=== PATIENT | male | born 1940 | race Caucasian/White ===

== ENCOUNTER 2018-09-16 10:44 | Emergency (ER) | payer MEDICARE ==
[~2018-09-16] VITALS: Ht 185.4 cm; Wt 108.9 kg
--- OUTSIDE RECORDS SUMMARY | 2018-09-16 10:46 | XMS REPORT | Continuity of Care Document ---
Author Author [facility] Interface Address Unknown Phone Unavailable Problems Problem Status Onset Date Classification Date Reported Comments Source EPISTAXIS Active 01/31/2017 [facility] UNCONTROLLED NOSE BLEED Active 01/31/2017 [facility] HTN (<span [id number]</span>) Resolved Problem 02/06/2017 [facility] EPISTAXIS Active [facility] Medications Medication Details Route Status Patient Instructions Ordering Provider Order Date Source Sodium Chloride 0.154 MEQ/ML Nasal [place] [Simply Saline] 1 spray, NASAL, QID, PRN Nasal dryness, # 45 mL, 0 Refill(s) Active 02/03/2017 [facility] Sodium Chloride 0.154 MEQ/ML Nasal [place] [Simply Saline] 1 spray, NASAL, QID, PRN Nasal dryness, # 45 ml, 0 Refill(s) Inactive 02/03/2017 [facility] Amoxicillin 875 MG / Clavulanate 125 MG Oral Tablet [Augmentin 875-mg] 875 mg=1 tab, PO, BID, X 5 day, # 10 tab, 0 Refill(s) Active 02/03/2017 [facility] Deep Sea Nasal [place] 2 spray, Route: NASAL, Q6H, Drug form: SOLN, Start date: 02/03/17 12:00:00 CDT, Duration: 30 day, Stop date: 03/05/17 6:00:00 CDTNotes: (Same as: [place], Deep Sea Nasal [place]). Inactive 02/03/2017 [facility] Streptococcus pneumoniae serotype 1 capsular antigen diphtheria [id number] protein conjugate vaccine / Streptococcus pneumoniae serotype 14 capsular antigen diphtheria [id number] protein conjugate vaccine / Streptococcus pneumoniae serotype 18C capsular antigen d 0.5 mL, Route: IM, Drug Form: INJ, Daily, Start date: 02/03/17 9:00:00 CDT, Duration: 1 doses or times, Stop date: 02/03/17 9:00:00 CDTNotes: Shake well prior to use (Same as: Prevnar 13) Inactive 02/03/2017 [facility] Coreg 3.125 mg, 1 tab, Route: PO, Drug form: TAB, Q12H, Dosing Weight 104.545, kg, Priority: NOW, Start date: 02/02/17 13:41:00 CDT, Duration: 30 day, Stop date: 03/04/17 9:00:00 CDTNotes: Give with food. (Same As: Coreg) No Longer Active 02/02/2017 [facility] ondansetron (ANES) Route: IV, Drug form: INJ, ONCE, Stop date: 02/02/17 10:07:00 CDT Inactive 02/02/2017 [facility] dexamethasone (ANES) Route: IV, Drug form: INJ, ONCE, Stop date: 02/02/17 8:46:00 CDT Inactive 02/02/2017 [facility] famotidine (ANES) Route: IV, Drug form: INJ, ONCE, Stop date: 02/02/17 8:46:00 CDT Inactive 02/02/2017 [facility] propofol (ANES) Route: IV, Drug form: INJ, ONCE, Stop date: 02/02/17 8:41:00 CDT Inactive 02/02/2017 [facility] metoprolol (ANES) Route: IV, Drug form: INJ, ONCE, Stop date: 02/02/17 8:41:00 CDT Inactive 02/02/2017 [facility] lidocaine (ANES) Route: IV, Drug form: INJ, ONCE, Stop date: 02/02/17 8:41:00 CDT Inactive 02/02/2017 [facility] phenylephrine (ANES) Route: IV, Drug form: INJ, ONCE, Stop date: 02/02/17 8:41:00 CDT Inactive 02/02/2017 [facility] Oxycodone 10 mg, Route: PO, Drug form: TAB, Q4H, Dosing Weight 104.545, kg, PRN Pain Score 7-10, Start date: 02/02/17 8:39:00 CDT, Duration: 30 day, Stop date: 03/04/17 8:38:00 CDT Inactive 02/02/2017 [facility] Flumazenil 0.2 mg, Route: IVP, PRN, Dosing Weight 104.545, kg, PRN Benzodiazepine Reversal, Initial dose, Start date: 02/02/17 8:39:00 CDT, Duration: 30 day, Stop date: 03/04/17 8:38:00 CDT Inactive 02/02/2017 [facility] Hydromorphone 0.5 mg, Route: IVP, Q5Min, Dosing Weight 104.545, kg, PRN Pain Score 7-10, Start date: 02/02/17 8:39:00 CDT, Duration: 4 doses or times, Stop date: Limited # of times Inactive 02/02/2017 [facility] Promethazine 6.25 mg, Route: IVPB, ONCE, Dosing Weight 104.545, kg, PRN Nausea & Vomiting, Start date: 02/02/17 8:39:00 CDT Inactive 02/02/2017 [facility] Ondansetron 4 mg, Route: IVP, ONCE, Dosing Weight 104.545, kg, PRN Nausea & Vomiting, Start date: 02/02/17 8:39:00 CDT Inactive 02/02/2017 [facility] Naloxone 0.4 mg, Route: IVP, Q2MIN, Dosing Weight 104.545, kg, PRN Narcotic Reversal, Start date: 02/02/17 8:39:00 CDT, Duration: 8 doses or times, Stop date: Limited # of times Inactive 02/02/2017 [facility] ePHEDrine (ANES) Route: IV, Drug form: INJ, ONCE, Stop date: 02/02/17 8:36:00 CDT Inactive 02/02/2017 [facility] vasopressin (ANES) Route: IV, Drug form: INJ, ONCE, Stop date: 02/02/17 8:36:00 CDT Inactive 02/02/2017 [facility] fentaNYL (ANES) Route: IV, Drug form: INJ, ONCE, Stop date: 02/02/17 8:36:00 CDT Inactive 02/02/2017 [facility] acetaminophen (ANES) (ANES) Route: IV, Drug form: INJ, Start date: 02/02/17 8:33:00 CDT, Stop date: 02/02/17 9:33:00 CDT Inactive 02/02/2017 [facility] ceFAZolin (ANES) Route: IV, Drug form: INJ, ONCE, Stop date: 02/02/17 8:11:00 CDT Inactive 02/02/2017 [facility] LR 1000 mL INJ (ANES) Route: IV, Total Volume: 1,000, Start date: 02/02/17 7:27:00 CDT, Stop date: 02/02/17 8:27:00 CDT Inactive 02/02/2017 [facility] Lactated Ringers 1,000 mL 1,000 mL, Rate: 75 ml/hr, Infuse over: 13.3 hr, Route: IV, Dosing Weight 104.545 kg, Total Volume: 1,000, Start date: 02/02/17 4:23:00 CDT, Duration: 30 day, Stop date: 03/04/17 4:22:00 CDT Inactive 02/02/2017 [facility] potassium phosphate 15 mmol, 5 mL, Route: IVPB, ONCE, Dosing Weight 104.545, kg, Start date: 02/02/17 3:51:00 CDT, Stop date: 02/02/17 3:51:00 CDTNotes: (Same as: K Phosphate.) 1 mMol phoshate has 1.47 mEq potassium Infuse over 4 hours Inactive 02/02/2017 [facility] Zofran 4 mg, 2 mL, Route: IVP, Drug form: INJ, Q8H, Dosing Weight 104.545, kg, PRN Nausea, Start date: 02/01/17 20:11:00 CDT, Duration: 30 day, Stop date: 03/03/17 20:10:00 CDTNotes: (Same as: Zofran) MEDICATION WASTE Product Size: 4 mg Product Wasted: ___ mg No Longer Active 02/02/2017 [facility] Tylenol 650 mg, 2 tab, Route: PO, Drug form: TAB, Q6H, Dosing Weight 104.545, kg, PRN Pain 1-3/Temp > 100.4 F, Start date: 02/01/17 17:14:00 CDT, Duration: 30 day, Stop date: 03/03/17 17:13:00 CDTNotes: Do not exceed 4 gm/day. (Same as: Tylenol) No Longer Active 02/01/2017 [facility] Hydralazine 10 mg, 0.5 mL, Route: IV, Drug form: INJ, Q4H, Dosing Weight 104.545, kg, PRN Hypertension, Start date: 02/01/17 17:13:00 CDT, Duration: 30 day, Stop date: 03/03/17 17:12:00 CDTNotes: (Same as: Apresoline) Push over 5 minutes No Longer Active 02/01/2017 [facility] Lisinopril 20 mg, 1 tab, Route: PO, Drug form: TAB, BID, Dosing Weight 104.545, kg, Start date: 02/01/17 9:00:00 CDT, Stop date: 03/02/17 17:00:00 CDTNotes: (Same as: Prinivil, Zestril) No Longer Active 02/01/2017 [facility] Hydralazine 20 mg, Route: IV, ONCE, Dosing Weight 104.545, kg, Start date: 02/01/17 8:01:00 CDT, Stop date: 02/01/17 8:01:00 CDT Inactive 02/01/2017 [facility] Amlodipine 10 mg, 1 tab, Route: PO, Drug form: TAB, Daily, Dosing Weight 104.545, kg, Start date: 02/01/17 7:00:00 CDT, Duration: 30 day, Stop date: 03/02/17 9:00:00 CDTNotes: (Same as: Norvasc) No Longer Active 02/01/2017 [facility] Morphine 2 mg, 0.5 mL, Route: IVP, Drug form: INJ, Q4H, Dosing Weight 104.545, kg, PRN Pain Score 7-10, Start date: 02/01/17 6:20:00 CDT, Duration: 30 day, Stop date: 03/03/17 6:19:00 CDTNotes: (Same as:MORPhine Sulfate) No Longer Active 02/01/2017 [facility] Aspirin 81 mg, PO, Daily, 0 Refill(s) No Longer Active 02/01/2017 [facility] amLODIPine 10 mg oral tablet 10 mg=1 tab, PO, Daily, # 30 tab, 0 Refill(s) Active 02/01/2017 [facility] lisinopril 20 mg oral tablet 20 mg=1 tab, PO, BID, 0 Refill(s) Active 02/01/2017 [facility] Afrin Severe Congestion 2 spray, Route: NASAL, Drug Form: SPRY, Dosing Weight 104.545, kg, BID, PRN Other -See Comment, Start date: 02/01/17 0:20:00 CDT, Duration: 30 day, Stop date: 03/03/17 0:19:00 CDTNotes: (Same as: Afrin) No Longer Active 02/01/2017 [facility] Amoxicillin 875 MG / Clavulanate 125 MG Oral Tablet [Augmentin 875-mg] 1 tab, Route: PO, Drug Form: TAB, Dosing Weight 104.545, kg, Q12H, STAT, Start date: 02/01/17 0:20:00 CDT, Duration: 30 day, Stop date: 03/02/17 21:00:00 CDTNotes: With food. (Same as: Augmentin 875) No Longer Active 02/01/2017 [facility] Nystatin 100 UNT/MG Topical Powder 1 appl, Route: TOP, PRN, Drug form: PWDR, PRN For Fungal Prophylaxis, Start date: 01/31/17 23:58:00 CDT, Duration: 30 day, Stop date: 03/02/17 23:57:00 CDTNotes: (Same as:Mycostatin, Nilstat) For external use only. No Longer Active 02/01/2017 [facility] sodium chloride 0.9% INJ 250 mL 250 mL, Rate: Log Tumbler for use with blood product administration., Dosing Weight 104.545, kg, Route: IV, Total Volume: 250, Priority: Routine, Start Date: 01/31/17 21:46:00 CDT, Duration: 30 day, Stop date: 03/02/17 21:45:00 CDT, Replace Every: 24 hr No Longer Active 02/01/2017 [facility] Phenylephrine Hydrochloride 10 MG/ML Nasal Solution Route: Each Affected Nostril, ONCE, Start date: 01/31/17 18:46:00 CDT, Stop date: 01/31/17 18:46:00 CDT Inactive 01/31/2017 [facility] Zofran 4 mg, Route: IVP, Drug form: INJ, ONCE, Dosing Weight 104.545, kg, Priority: STAT, Start date: 01/31/17 18:44:00 CDT, Stop date: 01/31/17 18:44:00 CDT Inactive 01/31/2017 [facility] Morphine 4 mg, Route: IVP, ONCE, Dosing Weight 104.545, kg, Priority: STAT, Start date: 01/31/17 18:44:00 CDT, Stop date: 01/31/17 18:44:00 CDT Inactive 01/31/2017 [facility] Zofran 4 mg, 2 mL, Route: IVP, Drug form: INJ, ONCE, Dosing Weight 104.545, kg, Priority: STAT, Start date: 01/31/17 16:16:00 CDT, Stop date: 01/31/17 16:16:00 CDTNotes: (Same as: Zofran) MEDICATION WASTE Product Size: 4 mg Product Wasted: ___ mg Inactive 01/31/2017 [facility] Morphine 4 mg, 1 mL, Route: IVP, Drug form: SOLN, ONCE, Dosing Weight 104.545, kg, Priority: STAT, Start date: 01/31/17 16:16:00 CDT, Stop date: 01/31/17 16:16:00 CDTNotes: (Same as:MORPhine Sulfate) Inactive 01/31/2017 [facility] Tranexamic Acid 1 gm, 10 mL, Route: TOP, Drug form: INJ, ONCE, Dosing Weight 104.545, kg, Start date: 01/31/17 16:10:00 CDT, Stop date: 01/31/17 16:10:00 CDTNotes: (Same As: Cyklokapron) Inactive 01/31/2017 [facility] Allergies, Adverse Reactions, Alerts Substance Category Reaction Severity Reaction type Status Date Reported Comments Source Immunizations Immunization Date Given Site Status Last Updated Comments Source pneumococcal 13-valent vaccine 02/03/2017 Left Deltoid completed [place] [facility] Results Order Name Results Value Reference Range Date Interpretation Comments Source HEMATOLOGY Hgb 9.5 g/dL 14.0 - 18.0 02/03/2017 [facility] HEMATOLOGY Hct 28.6 % 42.0 - 54.0 02/03/2017 [facility] CHEM PANEL Magnesium Lvl 2.2 mg/dL 1.8 - 2.4 02/03/2017 [facility] CHEM PANEL Phosphorus 2.9 mg/dL 2.5 - 4.5 02/03/2017 [facility] ELECTROLYTES AGAP 11.0 meq/L 10.0 - 20.0 02/03/2017 [facility] ELECTROLYTES eGFR 71 mL/min/1.73m2 02/03/2017 Result Comment: The eGFR is calculated using the CKD-EPI formula. In most young, healthy individuals the eGFR will be >90 mL/min/1.73m2. The eGFR declines with age. An eGFR of 60-89 may be normal in some populations, particularly the elderly, for whom the CKD-EPI formula has not been extensively validated. Use of the eGFR is not recommended in the following populations: Individuals with unstable creatinine concentrations, including patients and those with serious co-morbid conditions. Patients with extremes in muscle mass or diet. The data above are obtained from the National Kidney Disease Education Program (NKDEP) which additionally recommends that when the eGFR is used in patients with extremes of body mass index for purposes of drug dosing, the eGFR should be multiplied by the estimated BMI. [facility] ELECTROLYTES Creatinine Lvl 1.03 mg/dL 0.50 - 1.40 02/03/2017 [facility] ELECTROLYTES BUN 19 mg/dL 7 - 22 02/03/2017 [facility] ELECTROLYTES Sodium Lvl 144 meq/L 135 - 145 02/03/2017 [facility] ELECTROLYTES Glucose Lvl 125 mg/dL 70 - 99 02/03/2017 [facility] ELECTROLYTES CO2 26 meq/L 24 - 32 02/03/2017 [facility] ELECTROLYTES Calcium Lvl 8.5 mg/dL 8.5 - 10.5 02/03/2017 [facility] ELECTROLYTES Chloride Lvl 111 meq/L 95 - 109 02/03/2017 [facility] ELECTROLYTES Potassium Lvl 4.0 meq/L 3.5 - 5.1 02/03/2017 [facility] HEMATOLOGY Hct 26.6 % 42.0 - 54.0 02/03/2017 [facility] HEMATOLOGY MCV 96.8 fL 80.0 - 94.0 02/03/2017 [facility] HEMATOLOGY Hgb 9.2 g/dL 14.0 - 18.0 02/03/2017 [facility] HEMATOLOGY Platelet 192 K/CMM 133 - 450 02/03/2017 [facility] HEMATOLOGY MPV 9.1 fL 7.4 - 10.4 02/03/2017 [facility] HEMATOLOGY RDW 13.3 % 11.5 - 14.5 02/03/2017 [facility] HEMATOLOGY MCHC 34.7 g/dL 32.0 - 36.0 02/03/2017 [facility] HEMATOLOGY MCH 33.5 pg 27.0 - 31.0 02/03/2017 [facility] HEMATOLOGY RBC 2.75 M/CMM 4.70 - 6.10 02/03/2017 [facility] HEMATOLOGY WBC 14.2 K/CMM 3.7 - 10.4 02/03/2017 [facility] HEMATOLOGY PTT 27.5 s 22.9 - 35.8 02/03/2017 [facility] HEMATOLOGY PT 14.2 s 12.0 - 14.7 02/03/2017 [facility] HEMATOLOGY INR 1.08 0.85 - 1.17 02/03/2017 [facility] HEMATOLOGY Monocytes 9.0 % 2.0 - 12.0 02/03/2017 [facility] HEMATOLOGY Segs 82.6 % 45.0 - 75.0 02/03/2017 [facility] HEMATOLOGY Lymphocytes 8.0 % 20.0 - 40.0 02/03/2017 [facility] HEMATOLOGY Monocytes # 1.3 K/CMM 0.0 - 0.8 02/03/2017 [facility] HEMATOLOGY Lymphocytes # 1.1 K/CMM 1.0 - 5.5 02/03/2017 [facility] HEMATOLOGY Basophils 0.3 % 0.0 - 1.0 02/03/2017 [facility] HEMATOLOGY Eosinophils 0.1 % 0.0 - 4.0 02/03/2017 [facility] HEMATOLOGY Segs-Bands # 11.8 K/CMM 1.5 - 8.1 02/03/2017 [facility] CHEM PANEL Phosphorus 2.7 mg/dL 2.5 - 4.5 02/02/2017 [facility] CHEM PANEL eGFR 80 mL/min/1.73m2 02/02/2017 Result Comment: The eGFR is calculated using the CKD-EPI formula. In most young, healthy individuals the eGFR will be >90 mL/min/1.73m2. The eGFR declines with age. An eGFR of 60-89 may be normal in some populations, particularly the elderly, for whom the CKD-EPI formula has not been extensively validated. Use of the eGFR is not recommended in the following populations: Individuals with unstable creatinine concentrations, including patients and those with serious co-morbid conditions. Patients with extremes in muscle mass or diet. The data above are obtained from the National Kidney Disease Education Program (NKDEP) which additionally recommends that when the eGFR is used in patients with extremes of body mass index for purposes of drug dosing, the eGFR should be multiplied by the estimated BMI. [facility] CHEM PANEL CO2 28 meq/L 24 - 32 02/02/2017 [facility] CHEM PANEL Chloride Lvl 110 meq/L 95 - 109 02/02/2017 [facility] CHEM PANEL Calcium Lvl 8.5 mg/dL 8.5 - 10.5 02/02/2017 [facility] CHEM PANEL AGAP 10.3 meq/L 10.0 - 20.0 02/02/2017 [facility] CHEM PANEL Glucose Lvl 122 mg/dL 70 - 99 02/02/2017 [facility] CHEM PANEL Potassium Lvl 4.3 meq/L 3.5 - 5.1 02/02/2017 [facility] CHEM PANEL Sodium Lvl 144 meq/L 135 - 145 02/02/2017 [facility] CHEM PANEL BUN 14 mg/dL 7 - 22 02/02/2017 [facility] CHEM PANEL Creatinine Lvl 0.94 mg/dL 0.50 - 1.40 02/02/2017 [facility] CHEM PANEL Magnesium Lvl 2.2 mg/dL 1.8 - 2.4 02/02/2017 [facility] HEMATOLOGY Hct 27.7 % 42.0 - 54.0 02/02/2017 [facility] HEMATOLOGY Hgb 9.6 g/dL 14.0 - 18.0 02/02/2017 [facility] PARATHYROID PROFILE Ca Norm WB 1.12 mMol/L 1.05 - 1.25 02/02/2017 [facility] PARATHYROID PROFILE Ca Ion WB 1.10 mMol/L 1.05 - 1.25 02/02/2017 [facility] CHEM PANEL Phosphorus 1.9 mg/dL 2.5 - 4.5 02/02/2017 [facility] CHEM PANEL Magnesium Lvl 2.1 mg/dL 1.8 - 2.4 02/02/2017 [facility] ELECTROLYTES AGAP 8.7 meq/L 10.0 - 20.0 02/02/2017 [facility] ELECTROLYTES eGFR 94 mL/min/1.73m2 02/02/2017 Result Comment: The eGFR is calculated using the CKD-EPI formula. In most young, healthy individuals the eGFR will be >90 mL/min/1.73m2. The eGFR declines with age. An eGFR of 60-89 may be normal in some populations, particularly the elderly, for whom the CKD-EPI formula has not been extensively validated. Use of the eGFR is not recommended in the following populations: Individuals with unstable creatinine concentrations, including patients and those with serious co-morbid conditions. Patients with extremes in muscle mass or diet. The data above are obtained from the National Kidney Disease Education Program (NKDEP) which additionally recommends that when the eGFR is used in patients with extremes of body mass index for purposes of drug dosing, the eGFR should be multiplied by the estimated BMI. [facility] ELECTROLYTES Potassium Lvl 3.7 meq/L 3.5 - 5.1 02/02/2017 [facility] ELECTROLYTES Chloride Lvl 109 meq/L 95 - 109 02/02/2017 [facility] ELECTROLYTES BUN 10 mg/dL 7 - 22 02/02/2017 [facility] ELECTROLYTES Creatinine Lvl 0.68 mg/dL 0.50 - 1.40 02/02/2017 [facility] ELECTROLYTES Sodium Lvl 142 meq/L 135 - 145 02/02/2017 [facility] ELECTROLYTES CO2 28 meq/L 24 - 32 02/02/2017 [facility] ELECTROLYTES Calcium Lvl 8.6 mg/dL 8.5 - 10.5 02/02/2017 [facility] ELECTROLYTES Glucose Lvl 123 mg/dL 70 - 99 02/02/2017 [facility] HEMATOLOGY MCHC 35.0 g/dL 32.0 - 36.0 02/02/2017 [facility] HEMATOLOGY MCH 33.6 pg 27.0 - 31.0 02/02/2017 [facility] HEMATOLOGY MCV 96.0 fL 80.0 - 94.0 02/02/2017 [facility] HEMATOLOGY MPV 9.1 fL 7.4 - 10.4 02/02/2017 [facility] HEMATOLOGY Platelet 177 K/CMM 133 - 450 02/02/2017 [facility] HEMATOLOGY RDW 13.3 % 11.5 - 14.5 02/02/2017 [facility] HEMATOLOGY RBC 3.31 M/CMM 4.70 - 6.10 02/02/2017 [facility] HEMATOLOGY WBC 11.5 K/CMM 3.7 - 10.4 02/02/2017 [facility] HEMATOLOGY PTT 26.6 s 22.9 - 35.8 02/02/2017 [facility] HEMATOLOGY PT 14.0 s 12.0 - 14.7 02/02/2017 [facility] HEMATOLOGY INR 1.06 0.85 - 1.17 02/02/2017 [facility] HEMATOLOGY Lymphocytes # 0.9 K/CMM 1.0 - 5.5 02/02/2017 [facility] HEMATOLOGY Monocytes # 1.0 K/CMM 0.0 - 0.8 02/02/2017 [facility] HEMATOLOGY Eosinophils # 0.1 K/CMM 0.0 - 0.5 02/02/2017 [facility] HEMATOLOGY Basophils 0.1 % 0.0 - 1.0 02/02/2017 [facility] HEMATOLOGY Segs-Bands # 9.5 K/CMM 1.5 - 8.1 02/02/2017 [facility] HEMATOLOGY Lymphocytes 7.6 % 20.0 - 40.0 02/02/2017 [facility] HEMATOLOGY Monocytes 8.4 % 2.0 - 12.0 02/02/2017 [facility] HEMATOLOGY Eosinophils 0.6 % 0.0 - 4.0 02/02/2017 [facility] HEMATOLOGY Segs 83.3 % 45.0 - 75.0 02/02/2017 [facility] PARATHYROID PROFILE Ca Norm WB 1.17 mMol/L 1.05 - 1.25 02/02/2017 [facility] PARATHYROID PROFILE Ca Ion WB 1.18 mMol/L 1.05 - 1.25 02/02/2017 [facility] CARDIAC ENZYMES Total CK 76 unit/L 12 - 191 02/01/2017 [facility] CARDIAC ENZYMES Troponin-T null 0.000 - 0.100 02/01/2017 [facility] CARDIAC ENZYMES Troponin-I null 0.00 - 0.40 02/01/2017 [facility] CARDIAC ENZYMES CK MB Index 2.1 0.0 - 2.5 02/01/2017 [facility] CARDIAC ENZYMES CK MB 1.6 ng/mL 0.5 - 3.6 02/01/2017 [facility] CARDIAC ENZYMES Troponin-I null 0.00 - 0.40 02/01/2017 [facility] CARDIAC ENZYMES Total CK 72 unit/L 12 - 191 02/01/2017 [facility] CARDIAC ENZYMES Troponin-T null 0.000 - 0.100 02/01/2017 [facility] BACTERIAL - SEROLOGY MRSA by PCR Negative (02/01/17 12:32 AM) 02/01/2017 [facility] CARDIAC ENZYMES Total CK 71 unit/L 12 - 191 02/01/2017 [facility] CARDIAC ENZYMES Troponin-I null 0.00 - 0.40 02/01/2017 [facility] CARDIAC ENZYMES Troponin-T null 0.000 - 0.100 02/01/2017 [facility] CHEM PANEL ALT 20 unit/L 0 - 65 02/01/2017 [facility] CHEM PANEL AST 11 unit/L 0 - 37 02/01/2017 [facility] CHEM PANEL Bili Direct 0.2 mg/dL 0.0 - 0.3 02/01/2017 [facility] CHEM PANEL Alk Phos 77 unit/L 39 - 136 02/01/2017 [facility] CHEM PANEL Bili Total 0.6 mg/dL 0.2 - 1.3 02/01/2017 [facility] CHEM PANEL Total Protein 5.7 g/dL 6.4 - 8.4 02/01/2017 [facility] CHEM PANEL Albumin Lvl 3.0 g/dL 3.5 - 5.0 02/01/2017 [facility] CHEM PANEL Bili Indirect 0.4 mg/dL 0.0 - 1.0 02/01/2017 [facility] CHEM PANEL Globulin 2.7 g/dL 2.7 - 4.2 02/01/2017 [facility] CHEM PANEL A/G Ratio 1.1 0.7 - 1.6 02/01/2017 [facility] CHEM PANEL Lactic Acid Lvl 1.0 mMol/L 0.5 - 2.2 02/01/2017 [facility] HEMATOLOGY Monocytes # 0.6 K/CMM 0.0 - 0.8 02/01/2017 [facility] HEMATOLOGY Segs-Bands # 8.9 K/CMM 1.5 - 8.1 02/01/2017 [facility] HEMATOLOGY Lymphocytes # 0.4 K/CMM 1.0 - 5.5 02/01/2017 [facility] HEMATOLOGY Basophils 0.1 % 0.0 - 1.0 02/01/2017 [facility] HEMATOLOGY Monocytes 5.9 % 2.0 - 12.0 02/01/2017 [facility] HEMATOLOGY Eosinophils 0.1 % 0.0 - 4.0 02/01/2017 [facility] HEMATOLOGY Segs 89.5 % 45.0 - 75.0 02/01/2017 [facility] HEMATOLOGY Lymphocytes 4.4 % 20.0 - 40.0 02/01/2017 [facility] HEMATOLOGY PTT 23.4 s 22.9 - 35.8 02/01/2017 [facility] HEMATOLOGY PT 14.0 s 12.0 - 14.7 02/01/2017 [facility] HEMATOLOGY INR 1.06 0.85 - 1.17 02/01/2017 [facility] HEMATOLOGY MPV 9.2 fL 7.4 - 10.4 02/01/2017 [facility] HEMATOLOGY MCHC 35.5 g/dL 32.0 - 36.0 02/01/2017 [facility] HEMATOLOGY MCH 33.7 pg 27.0 - 31.0 02/01/2017 [facility] HEMATOLOGY Platelet 203 K/CMM 133 - 450 02/01/2017 [facility] HEMATOLOGY RDW 13.1 % 11.5 - 14.5 02/01/2017 [facility] HEMATOLOGY RBC 3.39 M/CMM 4.70 - 6.10 02/01/2017 [facility] HEMATOLOGY MCV 95.0 fL 80.0 - 94.0 02/01/2017 [facility] HEMATOLOGY WBC 10.0 K/CMM 3.7 - 10.4 02/01/2017 [facility] PARATHYROID PROFILE Ca Norm WB 1.13 mMol/L 1.05 - 1.25 02/01/2017 [facility] PARATHYROID PROFILE Ca Ion WB 1.16 mMol/L 1.05 - 1.25 02/01/2017 [facility] HEMATOLOGY G-value Rapid 7.2 K d/sc 5.0 - 11.6 02/01/2017 [facility] HEMATOLOGY Max Amplitude Rapid 59 mm 52 - 71 02/01/2017 [facility] HEMATOLOGY Angle Rapid 78 degrees 64 - 80 02/01/2017 [facility] HEMATOLOGY R-time Rapid 0.5 min 0.4 - 0.7 02/01/2017 [facility] HEMATOLOGY Split Point Rapid 0.4 min 02/01/2017 [facility] HEMATOLOGY ACT (TEG) Rapid 97 s 86 - 118 02/01/2017 [facility] HEMATOLOGY K-time Rapid 1.0 min 0.6 - 2.3 02/01/2017 [facility] HEMATOLOGY Estimated % Lysis Rapid 8.1 % 0.0 - 7.5 02/01/2017 Result Comment: "Significant Findings called to Luis Thomas_at 02/01/2017 00:00__by RM__.Read Back OK." [facility] BLOOD BANK RESULTS RBC product Product available (01/31/17 9:46 PM) 02/01/2017 [facility] HEMATOLOGY Plt Morph Normal (01/31/17 9:33 PM) 02/01/2017 [facility] HEMATOLOGY RBC Morph Normal (01/31/17 9:33 PM) 02/01/2017 [facility] Chest 1view DX Chest 1view DX EXAM: XR CHEST 1 VIEW DATE: 02/01/2017 1:03 AM CDT INDICATION: sob - . COMPARISON: None. TECHNIQUE: AP chest FINDINGS: Lines, tubes and hardware: None. Lungs and pleura: Faint rounded peripherally located nodular lesion seen in the right midlung zone. Neoplastic process cannot be totally excluded. Hyperinflation of both lungs suggestive of chronic obstructive pulmonary disease. Costophrenic sulci are sharp. Heart and mediastinum: normal for technique. Bones: No acute bony abnormality is identified. IMPRESSION: 1. Background of hyperinflated lungs suggestive of chronic obstructive pulmonary disease, nodular lesion is peripherally seen in the right midlung zone and the neoplastic etiology cannot be totally excluded. CT chest for further evaluation is recommended or comparison with older chest radiographs if available. 02/01/2017 - - Read by: Edward Clarke MD Dictated Date/time: 02/01/17 10:38 Electronically Signed by: Edward Clarke MD 02/01/17 10:40 FINAL REPORT [facility] CHEM PANEL Lactic Acid WB 1.9 mmol/L 0.5 - 2.2 02/01/2017 [facility] HEMATOLOGY Basophils # 0.1 K/CMM 0.0 - 0.2 02/01/2017 [facility] BLOOD BANK RESULTS Antibody Scrn Negative (01/31/17 4:10 PM) 01/31/2017 [facility] BLOOD BANK RESULTS ABO/Rh O POS 01/31/2017 [facility] HEMATOLOGY Eosinophils # 0.1 K/CMM 0.0 - 0.5 01/31/2017 [facility] Vital Signs Vital Sign Value Date Comments Source Systolic (mm Hg) 125 02/03/2017 [facility] Diastolic (mm Hg) 61 02/03/2017 [facility] Respitory Rate 21 02/03/2017 [facility] Respitory Rate 23 02/03/2017 [facility] Systolic (mm Hg) 130 02/03/2017 [facility] Diastolic (mm Hg) 58 02/03/2017 [facility] Respitory Rate 29 02/03/2017 [facility] Systolic (mm Hg) 131 02/03/2017 [facility] Diastolic (mm Hg) 63 02/03/2017 [facility] Temperature Oral (F) 97.6 F 02/01/2017 [facility] Temperature Oral (F) 98.4 F 02/01/2017 [facility] Temperature Oral (F) 98.1 F 02/01/2017 [facility] Heart Rate 111 01/31/2017 [facility] Heart Rate 100 01/31/2017 [facility] Heart Rate 105 01/31/2017 [facility] Height 185.42 cm 01/31/2017 [facility] Weight 104.545 01/31/2017 [facility] BMI Calculated 30.41 01/31/2017 [facility] Encounters Location Location Details Encounter Type Encounter Number Reason For Visit Attending Provider ADM Date DC Date Status Source [facility] Inpatient [id number] Jimy Hugo 01/31/2017 02/03/2017 [facility] Procedures Procedure Code Date Perfomer Comments Source
--- OUTSIDE RECORDS SUMMARY | 2018-09-16 10:47 | XMS REPORT | Summary of Care ---
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 then he started bleeding again and they replaced it to the R side of the nose. Patient denies any trauma, no cocaine use, on 81mg ASA daily, otherwise no blood thinners. Has never had a nosebleed like this before, only had a nosebleed once many years ago once he was SCUBA diving but that was trauma-induced from the mask. Problem List: - Epistaxis - Syncopal episode w/ ROSC - Anemia - Acute Blood Loss - HTN - CAD was on ASA Neuro/Psych: - AA&Ox 3 - No need for additional pain meds at this time CV: - HDS - Hydralazine PRN for SBP > 160. - EKG shows NSR - Treding cardiac enzymes, first set negative Resp: - Currently on 2L NC - Keep O2 sats > 93% - Pts Rt nare is currently packed GI/Nutrition: - NPO except ice chips Renal/Electrolytes: - Current Cr 0.9, continue to trend - Dt NPO will Place on LR @ 100 cc/hr - Replace electrolytes as needed Endo: - euglycemic Heme/Onc: - ENT following, want a cardiac workup before will take to OR unless pt starts rebleeding and becomes unstable. - Received 1U RBC in ER, will recheck post transfusion - H&H q6hr ID: - Starting Augmentin BID x 7 days Prophylaxis: - DVT ppx: SCD/TEDs - GI ppx: start Protonix Code status: Full Disposition: ICu Status Sadie Campbell, [facility] MSO # [id number] Extracted from: Title: ENT Consult Note Author: Ana Mosher MD Date: 01/31/17 Impression and Plan 76yoM with PMH of HTN and alcoholic cirrhosis presents with 1 day of right-sided epistaxis. Patient had an episode of syncope/asystole in ER prior to ENT evaluation where chest compressions were given with ROSC, patient is now alert, answering questions appropriately -R merocel removed, R nasal cavity packed with absorbable packing, will dissolve in 7-10 days -Augmentin 875mg BID for toxic shock prophylaxis for 7 days -Afrin and pressure PRN for continued bleeding -Nasal saline sprays starting 02/02 -Admit to hospitalist for Obs, workup per hospitalist -BP control as tolerated as epistaxis is exacerbated by HTN -Continue to monitor, may consider endoscopic evaluation with control of epistaxis in OR -Please page ENT with any significant bleeding Ana Mosher MD PGY-3, Otolaryngology MSO#: [id number] I performed a history and physical examination of the patient and discussed the patient's findings with the resident. I reviewed the resident's note and agree with the documented findings and treatment plan. I have seen the patient, formulated the treatment plan and reviewed and edited the current note.
--- NOTE | 2018-09-16 11:54 | Diagnostic Imaging Report ---
Exam: Abdominal film Clinical History: Concern for swallowed dental hardware Comparison: None. DISCUSSION: The bowel gas pattern shows no dilated, air-filled loops of bowel. Crescentic left upper quadrant calcifications likely reflect atherosclerotic calcification of the splenic artery. Similarly, crescentic calcifications adjacent to the spine at the left of L3 and L4 likely represent atherosclerotic calcification of the low abdominal aorta. No metallic foreign bodies project over the abdomen or pelvis. Radiopaque suture material projects over the right and left superior pubic rami. Multiple calcified pelvic phleboliths. No mass effect or organomegaly. Regional skeletal structures are intact with mild symmetric degenerative arthrosis of the hips. IMPRESSION: Nonobstructive bowel gas pattern. No radiopaque foreign bodies are identified projecting over the abdomen or pelvis. Signed by: Dr. John Wagoner M.D. on 09/16/2018 11:51 AM
--- NOTE | 2018-09-16 12:00 | Diagnostic Imaging Report ---
Examination: Single AP view of the chest. COMPARISON: None. INDICATION: Concern for ingested dental foreign body DISCUSSION: Lungs are well-inflated. No focal airspace consolidation, pleural effusion, or pneumothorax. 1.4 cm nodular opacity projects over the right midlung superimposed over the anterior fourth rib. Tortuous thoracic aorta with otherwise normal cardiomediastinal contour. No radiopaque foreign body projects over the mediastinum. Regional skeletal structures are intact. IMPRESSION: No acute cardiopulmonary abnormality. No radiopaque foreign bodies are identified. 1.4 cm nodular opacity in the right midlung is indeterminate in the absence of prior radiographs for comparison purposes. Nonemergent CT scan of the chest with contrast is suggested for further evaluation. Signed by: Dr. John Wagoner M.D. on 09/16/2018 11:56 AM
[2018-09-16 12:25] VITALS: BP 168/73
== END 2018-09-16 12:35 | disposition home or self-care (01) ==
LOC: ER 10:44
DX: R11.0 Nausea (principal); I10 Essential (primary) hypertension; I25.10 Atherosclerotic heart disease of native coronary artery without angina pectoris; E78.5 Hyperlipidemia, unspecified; Z86.74 Personal history of sudden cardiac arrest; E66.9 Obesity, unspecified; Z68.37 Body mass index [BMI] 37.0-37.9, adult
CPT/HCPCS: 71045; 74018; 99283